=== PATIENT | female | born 1965 | race Caucasian/White ===

== ENCOUNTER 2017-12-26 17:59 | Emergency (ER) | payer OTHER ==
--- OUTSIDE RECORDS SUMMARY | 2017-12-26 18:28 | XMS REPORT ---
:1965 External Reference #:[id number] Author Organization [facility] Address [address] [place] [address] Phone [phone] Care Team Providers Name Role Phone Dean Moore M.D. Care Team Information Information Systems Manager Unavailable Dean Moore M.D. Primary Care Physician Unavailable Payers Type Date Identification Numbers Payment Provider Subscriber Commercial Policy Number: [id number] [employer] Dinorah Marcelino PayID: [id number] [place] [address] Health Maintenance Expires: Policy Number: [facility] Dinorah Marcelino [facility] [place] [place] 10/03/2016 [id number] PayID: [id number] [place] [address] Problems Description No Information Family History Date Family Member(s) Problem(s) Comments Father Diabetes Father Heart Disease Mother due to Cancer () Mother due to Heart Attack () Social History Type Date Description Comments Cigarette Use currently smokes 1/2 Pack Daily ETOH Use Rare Use Of Alcohol Recreational Drug Use Has Used In Past Allergies, Adverse Reactions, Alerts Date Description Reaction Status Severity Comments 11/01/2016 NKDA active Medications Medication Date Status Form Strength Qnty SIG Indications Ordering Provider Amoxicillin/Clavu /18/ Active Tablets 875-125mg 14tabs 1 by adriane Girard 2018 mouth Yehuda, twice a M.D. day for 7 days Dexamethasone 18/ Active Tablets 4mg 5tabs one tab Shaji, 2018 daily Yehuda, for 5 M.D. days Levo-T 00/ Active Tablets 88mcg Unknown 0000 Metformin HCL / Active Tablets 500mg 1 by Unknown 0000 mouth twice a day Calcium 600 / Active Tablets 600mg by mouth Unknown 0000 twice a day Aspirin Low Dose / Active Chewtabs 81mg 1 by Unknown 0000 mouth every day Ranitidine HCL / Active Capsules 150mg 1 by Unknown 0000 mouth twice a day Simvastatin / Active Tablets 20mg 1 by Unknown 0000 mouth every day Cilostazol / Active Tablets 50mg Unknown 0000 Cyclobenzaprine / Active Tablets 10mg 1 tab by Unknown HCL 0000 mouth three times a day as needed for muscle spasms Anoro Ellipta / Active Aerosol 62.5-25mcg take one Unknown 0000 /Inh puff once daily. Albuterol Sulfate / Active Nebulizer (2.5mg/3ML maximum Unknown 0000 ) 0.083% three times a day q8 as needed Ventolin HFA / Active Aerosol 108(90Base 2 puffs Unknown 0000 ) mcg/Act every 4 hours as needed Paxil / Active Tablets 40mg 1 by Unknown 0000 mouth every day Tramadol HCL / Active Tablets 50mg 1-2. tab Unknown 0000 q4h. for pain Vital Signs Date Vital Result Comment 12/19/2017 Weight 211.00 lb Height 65 inches 5'5" BMI (Body Mass Index) 35.1 kg/m2 BP Systolic 133 mmHg BP Diastolic 90 mmHg Heart Rate 100 /min O2 % BldC Oximetry 98 % Body Temperature 97.7 F Pain Level 0 11/28/2017 Weight 211.00 lb Height 65 inches 5'5" BMI (Body Mass Index) 35.1 kg/m2 BP Systolic 131 mmHg BP Diastolic 92 mmHg Heart Rate 106 /min O2 % BldC Oximetry 98 % Body Temperature 97.1 F Pain Level 0 09/19/2017 Weight 209.00 lb Height 65 inches 5'5" BMI (Body Mass Index) 34.8 kg/m2 BP Systolic 126 mmHg BP Diastolic 88 mmHg Heart Rate 80 /min O2 % BldC Oximetry 96 % Body Temperature 97.5 F Pain Level 0 01/10/2017 Weight 175.00 lb Height 65 inches 5'5" BMI (Body Mass Index) 29.1 kg/m2 Heart Rate 68 /min O2 % BldC Oximetry 97 % Body Temperature 98.2 F Pain Level 2 11/01/2016 Weight 175.00 lb Height 65 inches 5'5" BMI (Body Mass Index) 29.1 kg/m2 BP Systolic 116 mmHg BP Diastolic 74 mmHg Heart Rate 85 /min O2 % BldC Oximetry 99 % Body Temperature 97.6 F Results Description No Information Procedures Date CPT Code Description Status 11/28/2017 74525 Nasal Endoscopy, Diag. Completed 09/19/2017 35997 Nasal Endoscopy, Diag. Completed 01/02/2017 11830 Nasal/Sinus Endosc.W.Max.Antrost. Completed 01/02/2017 73618 Nasal/Sinus Endosc.Surg.W.Ethmoid Completed 01/02/2017 12955 Septoplasty Completed 01/02/2017 27251 Submucous Resect.Turb.Par Or Comp Completed 01/02/2017 72559 Anesthesia, Intraoral Surgery Not Otherwise Spec Completed 11/01/2016 70453 Nasal Endoscopy, Diag. Completed Encounters Type Date Location Provider CPT E/M Office Visit 11/28/2017 11:45a [facility] Yehuda Girard M.D. 74022 Office Visit 09/19/2017 1:00p [facility] Yehuda Girard M.D. 96824 Office Visit 11/01/2016 2:15p [facility] Yehuda Girard M.D. [id number]
--- OUTSIDE RECORDS SUMMARY | 2017-12-26 18:28 | XMS REPORT ---
:1965 External Reference #:[id number] Author Organization [facility] Address [address] [place] [address] Phone [phone] Care Team Providers Name Role Phone Dean Moore M.D. Care Team Information [place] Unavailable Dean Moore M.D. Primary Care Physician Unavailable Payers Type Date Identification Numbers Payment Provider Subscriber Commercial Policy Number: [id number] [employer] Dinorah Marcelino PayID: [id number] [place] [address] Health Maintenance Expires: Policy Number: [place] [facility] Dinorah Marcelino [facility] ([facility] [place] 10/03/2016 [id number] PayID: [id number] [place] [address] Problems Description No Information Family History Date [...] daily Yehuda, for 5 M.D. days Levo-T /00/ Active Tablets 88mcg Unknown 0000 Metformin HCL [...] pain Vital Signs Date Vital Result Comment 11/28/2017 Weight 211.00 lb Height 65 inches [...] Information Procedures Date CPT Code Description Status 09/19/2017 31600 Nasal Endoscopy, Diag. Completed 01/02/2017 79639 Nasal/Sinus Endosc.W.Max.Antrost. Completed 01/02/2017 97679 Nasal/Sinus Endosc.Surg.W.Ethmoid Completed 01/02/2017 02108 Septoplasty Completed 01/02/2017 90161 Submucous Resect.Turb.Par Or Comp Completed 01/02/2017 67024 Anesthesia, Intraoral Surgery Not Otherwise Spec Completed 11/01/2016 74209 Nasal Endoscopy, Diag. Completed Encounters Type Date Location Provider CPT E/M Dx Office Visit 09/19/2017 1:00p [facility] Yehuda Girard M.D. 48618 J01.90 H69.83 R42 Office Visit 11/01/2016 2:15p [facility] Yehuda Girard M.D. 39450 J34.2 J31.0 K21.9 J32.9 Plan of Care No Information Available
--- NOTE | 2017-12-26 18:58 | UC ---
Cardiac HPI - HPI Summary HPI Summary: 4 DAYS OF WORSENING SHARP MIDSTERNAL/RIGHT SIDED CHEST PAIN AND PALPITATIONS. FINGERTIPS FEEL TINGLY. HAS ASSOCIATED SOB, NAUSEA AND DIZZINESS. WORSE WHEN SHE STANDS UP. STATES HER BP TODAY DROPPED TO 73/55. NO FEVER. HAS H/O INTERMITTENT CP AND PALPITATIONS BUT THIS FEELS DIFFERENT. AT TIME OF EXAM PT STATES CP IS GONE BUT PALPITATIONS PERSIST. 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 Onset/Duration: Gradual Onset, Lasting Days, Still Present Timing: Constant Initial Severity: Moderate Current Severity: Moderate Pain Intensity: 0 Chest Pain Location: Mid Sternal, Right Anterior Character: Fluttering, Sharp/Stabbing Aggravating Factor(s): Position Alleviating Factor(s): Rest, Position Associated Signs & Symptoms: Positive: Chest Pain, Tingling, SOB, Nausea/ Vomiting, Palpitations - Allergy/Home Medications Allergies/Adverse Reactions: Allergies Allergy/AdvReac Type Severity Reaction Status Date / Time Sulfa (Sulfonamide Allergy Severe Difficulty Verified 12/26/17 18:20 Antibiotics) Breathing Home Medications: Home Medications Calcium Carbonate/Vitamin D3 [Calcium 600 + Vit D Tablet] 1 each PO DAILY [History Confirmed 12/26/17] Nystatin OINT* 1 applic TOPICAL BID 12/26/17 [History Confirmed 12/26/17] busPIRone TAB* [Buspar TAB *] 15 mg PO BID 12/26/17 [History Confirmed 12/26/17] traMADol TAB* [Ultram*] 50 mg PO Q12H PRN 12/26/17 [History Confirmed 12/26/17] PMH/Surg Hx/FS Hx/Imm Hx Endocrine History: Diabetes, Hypothyroidism Psychological History: Post Traumatic Stress Disorder - Surgical History Surgical History: Yes Surgery Procedure, Year, and Place: APPI, 2 C-SECT, NECK BIOPSY,TONSILS & ADENOIDS,tubal ligation,Angio Plasty 05/18, HEART CATH- HAD MRI 1.5T [facility], - Family History Known Family History: Positive: Hypertension - Social History Alcohol Use: Rare Substance Use Type: None Smoking Status (MU): Light Every Day Tobacco Smoker Type: Cigarettes Amount Used/How Often: 1/2 PPD Household Exposure Type: Cigarettes Review of Systems Constitutional: Negative Respiratory: Shortness Of Breath Cardiovascular: Palpitations, Chest Pain Gastrointestinal: Nausea All Other Systems Reviewed And Are Negative: Yes Physical Exam Triage Information Reviewed: Yes Appearance: Well-Appearing, No Pain Distress, Well-Nourished Vital Signs: Initial Vital Signs Temp 98.1 F 12/26/17 18:12 Pulse 83 12/26/17 18:12 Resp 16 12/26/17 18:12 BP 142/63 12/26/17 18:12 Pulse Ox 98 12/26/17 18:12 Vital Signs Reviewed: Yes Eyes: Positive: Conjunctiva Clear ENT: Positive: Hearing grossly normal Neck: Positive: Supple Respiratory Exam: Normal Cardiovascular Exam: Normal Abdomen Description: Positive: Nontender, Soft Musculoskeletal: Positive: No Edema Neurological: Positive: Alert Psychological: Positive: Normal Response To Family, Age Appropriate Behavior Skin: Negative: rashes Diagnostics - EKG Cardiac Rate: NL - 84BPM Cardiac Rhythm: Sinus: Normal Ectopy: None ST Segment: Normal - Assessment/Plan Course Of Treatment: TO [facility] BY AMBULANCE - Clinical Impression Provider Diagnoses: CHEST PAIN/PALPITATIONS - Physician Notifications Discussed Patient Care With: Emily Aceves - TO [facility] BY AMBULANCE Time Discussed With Above Provider: 18:50 Instructed by Provider To: MD Will See In ED Discharge - Sign-Out/Discharge Documenting (check all that apply): Patient Departure All imaging exams completed and their final reports reviewed: No Studies - Discharge Plan Condition: Stable Disposition: TRANS HIGHER LVL OF CARE FAC Referrals: Dean Moore MD [Primary Care Provider] - - Billing Disposition and Condition Condition: STABLE Disposition: Trans Higher Lvl of Care Fac
[2017-12-26 19:08] VITALS: BP 131/60
== END 2017-12-26 19:11 | disposition short-term general hospital (02) ==
LOC: UCEAST 17:59
DX: R07.9 Chest pain, unspecified (principal); R00.2 Palpitations; F17.200 Nicotine dependence, unspecified, uncomplicated; E11.9 Type 2 diabetes mellitus without complications; E03.9 Hypothyroidism, unspecified; F43.10 Post-traumatic stress disorder, unspecified
CPT/HCPCS: 93005; 99213; G0463

== ENCOUNTER 2017-12-26 19:27 | Emergency (ER) | payer OTHER ==
[2017-12-26 19:42] VITALS: BP 173/71
--- NOTE | 2017-12-26 20:02 | ED ---
Palpitations / Dysrhythmia - HPI Summary HPI Summary: 52 year old F BIB EMS from Urgent Care to [facility] complains of intermittent chest palpitations described as fluttering that began late this morning. Symptoms aggravated by nothing. Symptoms alleviated by nothing. The chest fluttering has progressively become more prolonged throughout the day, lasting 2-3 minutes, followed by right-sided sharp chest pain that radiates to her shoulders lasting 1-2 minutes. The patient rates the chest pain 3/10 in severity that has worsened to 7/10 in severity throughout the day. These episodes happen every 30- 60 minutes. She reports tingliness in her finger tips, headache, nausea, and decreased appetite. She states that when she stands up, she feels dizziness described as lightheadedness/fogginess/about to pass out. She has hx COPD. Patient additionally complains of shortness of breath that has worsened x4 days. Patient reports hx hypotension, she is concerned that her blood pressure is going up. Patient denies syncope, cough, fever, abdominal pain, and vomiting. - History of Current Complaint Chief Complaint: EDDysrhythmPalp Time Seen by Provider: 12/26/17 19:40 Hx Obtained From: Patient Onset/Duration: Sudden Onset, Lasting Hours - late this morning, Still Present Timing: Intermittent Episodes Lasting: - 2-3 minutes Severity Initially: Mild Severity Currently: Moderate Character: Fluttering Aggravating: Nothing Alleviating: Nothing - Allergy/Home Medications Allergies/Adverse Reactions: Allergies Allergy/AdvReac Type Severity Reaction Status Date / Time Sulfa (Sulfonamide Allergy Severe Difficulty Verified 12/26/17 19:39 Antibiotics) Breathing PMH/Surg Hx/FS Hx/Imm Hx Previously Healthy: No Endocrine/Hematology History: Reports: Hx Diabetes - TAKES METFORMIN, Hx Thyroid Disease - ASHLEE'S Denies: Hx Systemic Lupus Erythematosus Cardiovascular History: Reports: Hx Angina, Hx Hypercholesterolemia, Hx Hypotension, Hx Syncope Denies: Hx Hypertension, Hx Pacemaker/ICD Respiratory History: Reports: Hx Asthma, Hx Chronic Obstructive Pulmonary Disease (COPD) GI History: Reports: Other GI Disorders - reflux History: Denies: Hx Renal Disease Musculoskeletal History: Reports: Hx Osteoporosis Denies: Hx Rheumatoid Arthritis Sensory History: Denies: Hx Hearing Aid Neurological History: Reports: Other Neuro Impairments/Disorders - numbness in legs felt to be circulation Psychiatric History: Reports: Hx Panic Disorder - Cancer History Hx Chemotherapy: No Hx Radiation Therapy: No - Surgical History Surgery Procedure, Year, and Place: APPI, 2 C-SECT, NECK BIOPSY,TONSILS & ADENOIDS,tubal ligation,Angio Plasty 05/18, HEART CATH- HAD MRI 1.5T [facility], Infectious Disease History: No Infectious Disease History: Denies: History Other Infectious Disease, Traveled Outside the [place] in Last 30 Days - Family History Known Family History: Positive: Hypertension - Social History Alcohol Use: Rare Hx Substance Use: No Substance Use Type: Reports: None Hx Tobacco Use: Yes Smoking Status (MU): Light Every Day Tobacco Smoker Type: Cigarettes Amount Used/How Often: 1/2 PPD Review of Systems Positive: Other - blood pressure is going up. Negative: Fever Positive: Palpitations - intermittent, described as fluttering that began late this morning, lasting 2-3 minutes, Chest Pain - right-sided, sharp, radiates to her shoulders lasting 1-2 minutes, Other Positive: Shortness Of Breath. Negative: Cough Positive: Nausea, Other - decreased appetite. Negative: Abdominal Pain, Vomiting Neurological: Other - tingliness in her finger tips, dizziness described as lightheadedness/fogginess/about to pass out Positive: Headache. Negative: Syncope All Other Systems Reviewed And Are Negative: Yes Physical Exam - Summary Physical Exam Summary: Appearance: Well-appearing, Well-nourished, lying in bed comfortably Skin: Warm, dry, no obvious rash Eyes: sclera anicteric, no conjunctival pallor ENT: mucous membranes moist, pharynx appears normal Neck: Supple, nontender Respiratory: Clear to auscultation, no signs of respiratory distress Cardiovascular: Normal S1, S2. No murmurs. Normal distal pulses in tibial and radial bilaterally. Abdomen: Soft, nontender, normal active bowel sounds present Musculoskeletal: Normal, Strength/ROM Intact Neurological: A&Ox3, awake and alert, mentation is normal, speech is fluent and appropriate Psychiatric: affect is normal, does not appear anxious or depressed Triage Information Reviewed: Yes Vital Signs On Initial Exam: Initial Vitals Temp Pulse Resp BP Pulse Ox 98.4 F 87 20 173/71 99 12/26/17 19:39 12/26/17 19:39 12/26/17 19:39 12/26/17 19:39 12/26/17 19:39 Vital Signs Reviewed: Yes Diagnostics - Vital Signs Vital Signs Temp Pulse Resp BP Pulse Ox 12/26/17 19:39 98.4 F 87 20 173/71 99 - Laboratory Result Diagrams: 12/26/17 20:05 12/26/17 20:05 Lab Statement: Any lab studies that have been ordered have been reviewed, and results considered in the medical decision making process. 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 Scribe Documentation Reviewed: Yes Provider Attestation: The documentation as recorded by the [email or web address] chris accurately reflects the service I personally performed and the decisions made by me, Jonathan Restrepo MD
[2017-12-26 20:15] LABS: ABS Basophils 0.1 10^3/ul (0-0.2); ABS Eosinophils 0.1 10^3/ul (0-0.6); ABS Lymphocytes 2.3 10^3/ul (1.0-4.8); ABS Monocytes 0.6 10^3/ul (0-0.8); ABS Neutrophils 3.7 10^3/ul (1.5-7.7); ABS Nucleated RBC 0 10^3/ul; Eosinophil % 1.7 % (0-6); Hematocrit 34 % (35-47); Hemoglobin 11.5 g/dl (12.0-16.0); Lymphocyte % 34.1 % (25-47); Mean Corpuscular HGB Conc 34 g/dl (31-36); Mean Corpuscular Hemoglobin 30 pg (27-31); Mean Corpuscular Volume 88 fL (80-97); Mean Platelet Volume 7.2 um3 (7.4-10.4); Nucleated Red Blood Cells % 0; Platelet Count 313 10^3/ul (150-450); Red Blood Count 3.85 10^6/ul (4.00-5.40); Red Cell Distribution Width 15 % (10.5-15); White Blood Count 6.7 10^3/ul (3.5-10.8)
[2017-12-26 20:32] LABS: EGFR Non-African American 60.6 (>60)
--- NOTE | 2017-12-27 09:21 | RAD ---
INDICATION: RIGHT side chest pain and shortness of breath. Palpitations. COPD. History of tobacco use. COMPARISON: June 12, 2016 TECHNIQUE: Dual energy PA and routine lateral views of the chest were obtained. REPORT: Suboptimal inspiration for this patient compared with the prior exam demonstrating elevated lung volumes. Increased AP thoracic diameter. Mild prominence of interstitial markings and minimal bilateral subsegmental atelectasis. The lungs and pleural spaces are otherwise clear. Negative for pneumothorax. The heart, pulmonary vasculature, and mediastinal contours are unremarkable. Bone density appears decreased throughout. No fractures evident. IMPRESSION: #. Stigmata of obstructive lung disease. #. Mild subsegmental atelectasis.
== END 2017-12-26 21:06 | disposition home or self-care (01) ==
LOC: ED 19:27
DX: R00.2 Palpitations (principal); R06.02 Shortness of breath; R51 Headache; R11.0 Nausea
CPT/HCPCS: 36415; 71046; 80053; 84484; 85025; 85379; 93005; 99283

== ENCOUNTER 2018-03-05 06:56 | Day surgery (SDC) | payer OTHER ==
[~2018-03-05 06:56] MED LIST: Buffered Lidocaine 0.9% SYRIN* 5 ML/SYR SYRINGE INTRADERM ONE
[2018-03-05] MEDS ORDERED: DiMENhydriNATE IV* 50 MG/ML VIAL IV PUSH PRN (07:32)
[2018-03-05] MEDS ORDERED: Levalbuterol 0.63MG/3ML NEB* UNIT OF USE INH PRN (07:32)
[2018-03-05] MEDS ORDERED: PROCHLORPERAZINE INJ 5 MG/ML 2 ML VIAL IV PRN (07:32)
[2018-03-05] MEDS ORDERED: Naloxone* 0.4 MG/ML 1 ML VIAL IV PRN (07:32)
[2018-03-05] MEDS ORDERED: Ondansetron INJ* 2 MG/ML VIAL IV PRN (07:32)
[2018-03-05] MEDS ORDERED: Acetaminophen TAB* 325 MG PO PRN (07:32)
[2018-03-05] MEDS ORDERED: fentaNYL* 50 MCG/ML 2 ML VIAL (100 MCG VIAL) IV PRN (07:32)
[2018-03-05] MEDS ORDERED: diPHENhydraMINE IV* 50 MG/ML 1 ml VIAL (BENADRYL) IV PRN (07:32)
[2018-03-05] MEDS ORDERED: fentaNYL* 50 MCG/ML 2 ML VIAL (100 MCG VIAL) ONE ×2 (08:08→08:36)
[2018-03-05] MEDS ORDERED: Midazolam* 1 MG/ML 2 ML VIAL (2 MG) ONE (08:08)
[2018-03-05] MEDS ORDERED: KETAMINE HCL* 50 MG/ML 10 ML VIAL ONE (08:36)
[2018-03-05] MEDS ORDERED: Famotidine IV* 10 MG/ML 2 ML (20 mg) ONE (08:37)
[2018-03-05] MEDS ORDERED: Dexamethasone IV* 4 MG/ML 1 ML (4 MG) ONE (08:37)
[2018-03-05] MEDS ORDERED: Lidocaine 2% PF * 5 ML VIAL ONE (08:37)
[2018-03-05] MEDS ORDERED: Propofol* 10 MG/ML 20 ML BTL IV PUSH ONE (08:37)
[2018-03-05 10:01] VITALS: BP 133/93
--- NOTE | 2018-03-06 04:40 | PRO ---
CC: MARIA ELENA Arriaga; Dr. Moore * DATE OF SERVICE: 03/05/18 - [facility] PRIMARY CARE PHYSICIAN: Dr. Moore INDICATIONS FOR PROCEDURE: Epigastric pain and dysphagia. PROCEDURE PERFORMED: EGD with biopsy. MEDICATIONS GIVEN: Please see anesthesia report. DESCRIPTION OF PROCEDURE: After the EGD procedure including the risks, benefits , and alternatives with the risks not limited to perforation, surgery, missed lesions, and/or were explained to the patient, written consent was then obtained, IV medication was given, and a bite block was placed between the teeth. The IV medication was given by the anesthesia service. The adult Olympus gastroscope was passed through the patient's mouth into the upper esophageal sphincter, into the tubular esophagus. At the distal esophagus, the GE junction was intact. There was minimal irregularity this was biopsied. The scope was then advanced through the lower esophageal sphincter into the stomach. Retained gastric contents were evident, they obscured roughly 30 to 40 % of the body and cardia. I did suction up the fluid. I was able to get a little bit better views, but this did limit the views of the stomach. She did have patchy gastropathy most prevalent in the body, but also prevalent in the antrum. This was biopsied and then in addition, a CLOtest was done. Retroflexion showed retained contents, but no gross abnormalities. The scope was then advanced through the widely patent pylorus into the duodenal bulb, C- loop, and distal duodenum, and all these were normal in appearance. Biopsies were taken for celiac disease given her diarrhea. The scope was withdrawn from the patient. The GE junction was at 38. She tolerated the procedure well. She was returned to the recovery room in stable condition. IMPRESSION: 1. Complete esophagogastroduodenoscopy with biopsy. 2. Very mild irregularity of the GE junction, biopsied. 3. Retained food contents, suspect gastroparesis. 4. Gastropathy patchy, biopsied and CLOtest. 5. Normal-appearing duodenum, biopsied. RECOMMENDATIONS: No dilation could be done today, however, there was no focal stricture or narrowing, but no empiric dilation could be done secondary to the retained food contents. Her symptomatology is suspicious for some gastroparesis , would recommend a gastric emptying study be done. In addition, her dysphagia seems to be more oropharyngeal, would recommend a modified barium swallow with speech therapy. We will follow up on these biopsies and she can follow up with Netta Bonilla in our office in 4 to 6 weeks. [id number]/[facility] #: [id number] OBDULIA
== END 2018-03-05 10:02 | disposition home or self-care (01) ==
LOC: OR 06:56 → EDSTATUS 08:15 → OR 10:02
PROVIDERS: ATTEND Internal Medicine Gastroenterology
DX: K21.9 Gastro-esophageal reflux disease without esophagitis (principal); K29.50 Unspecified chronic gastritis without bleeding; R13.10 Dysphagia, unspecified; J43.9 Emphysema, unspecified
CPT/HCPCS: 87077; 88305; J1100; J2250; J2704; J3010

== ENCOUNTER 2018-03-11 11:44 | Emergency (ER) | payer OTHER ==
[2018-03-11] MEDS ORDERED: Ketorolac INJ* 30 MG/ML 1 ML VIAL IM ONE (14:47)
[2018-03-11 15:26] VITALS: BP 142/70
--- NOTE | 2018-03-11 18:01 | ED ---
Back Pain - HPI Summary HPI Summary: Patient is a 52-year-old female who presents emergency department for left- sided lower rib pain times several days. Patient states she had an apron on with a woody knife in her pocket when she pressed up against something and hand all into her left side of rib cage. Patient states she has had pain since and then she started with a cough yesterday. She denies fever, chills, shortness of breath. She is a daily smoker. She takes tramadol and meloxicam. Symptoms are mild in severity. Coughing and movement makes symptoms worse. Rest makes symptoms better. - History of Current Complaint Chief Complaint: EDBackInjuryPain Stated Complaint: BACK PAIN Time Seen by Provider: 03/11/18 14:06 Hx Obtained From: Patient Hx Last Menstrual Period: STONE PAVER Pain Intensity: 7 Pain Scale Used: 0-10 Numeric - Allergies/Home Medications Allergies/Adverse Reactions: Allergies Allergy/AdvReac Type Severity Reaction Status Date / Time Sulfa (Sulfonamide Allergy Severe Difficulty Verified 03/11/18 11:57 Antibiotics) Breathing PMH/Surg Hx/FS Hx/Imm Hx Previously Healthy: Yes Endocrine/Hematology History: Reports: Hx Diabetes - TYPE II- ON ORAL MEDICATION FOR, Hx Thyroid Disease - ASHLEE'S, Hx Anemia - REPORTS ON AND OFF -STATES LAST TIME CHECKED WAS ANEMIC Denies: Hx Systemic Lupus Erythematosus Cardiovascular History: Reports: Hx Angina, Hx Hypercholesterolemia, Hx Hypotension, Hx Peripheral Vascular Disease, Hx Syncope, Other Cardiovascular Problems/Disorders - FOLLOWED BY DR. ZUNIGA- LAST SEEN-01/2018 Denies: Hx Hypertension, Hx Pacemaker/ICD Respiratory History: Reports: Hx Asthma, Hx Chronic Obstructive Pulmonary Disease (COPD) GI History: Reports: Hx Gastroesophageal Reflux Disease - ON MEDICATION FOR, Hx Irritable Bowel, Other GI Disorders - reflux History: Denies: Hx Renal Disease Musculoskeletal History: Reports: Hx Arthritis - OSTEOARTHRITIS, Hx Osteoporosis , Other Musculoskeletal History - PATIENT IS UNSURE OF LOWER BACK DISC PROBLEM- BUT STATES HAS A PROBLEM Denies: Hx Rheumatoid Arthritis Sensory History: Reports: Hx Cataracts - BILATERAL, Hx Contacts or Glasses - READING GLASSES Denies: Hx Hearing Aid Opthamlomology History: Reports: Hx Cataracts - BILATERAL, Hx Contacts or Glasses - READING GLASSES Neurological History: Reports: Hx Headaches - DAILY-ONGOING, Hx Migraine - EVERY FEW MONTHS, Other Neuro Impairments/Disorders - PTSD// Psychiatric History: Reports: Hx Anxiety - ON MEDICATION FOR, Hx Depression - ON MEDICATION FOR, Hx Panic Disorder - Cancer History Hx Chemotherapy: No Hx Radiation Therapy: No - Surgical History Surgery Procedure, Year, and Place: APPI\Y, 2 C-SECT, NECK BIOPSY,TONSILS & ADENOIDS,tubal ligation,Angio Plasty 05/18, HEART CATH- HAD MRI 1.5T SINCE,NO STENTS,LEFT BREAST BIOPSY Hx Anesthesia Reactions: No Infectious Disease History: No Infectious Disease History: Denies: History Other Infectious Disease, Traveled Outside the [place] in Last 30 Days - Family History Known Family History: Positive: Hypertension - Social History Occupation: Unemployed Lives: With Family Alcohol Use: Rare Hx Substance Use: No Substance Use Type: Reports: None Hx Tobacco Use: Yes Smoking Status (MU): Current Every Day Smoker Type: Cigarettes Amount Used/How Often: 5-10 cigarettes/day X 47 YEARS Have You Smoked in the Last Year: Yes Review of Systems Constitutional: Negative Negative: Fever, Chills Eyes: Negative ENT: Negative Positive: Other - Left lower rib pain Negative: Shortness Of Breath, Cough Neurological: Negative All Other Systems Reviewed And Are Negative: Yes Physical Exam Triage Information Reviewed: Yes Vital Signs On Initial Exam: Initial Vitals Temp Pulse Resp BP Pulse Ox 97.2 F 87 14 149/73 98 03/11/18 11:54 03/11/18 11:54 03/11/18 11:54 03/11/18 11:54 03/11/18 11:54 Vital Signs Reviewed: Yes Appearance: Positive: Well-Appearing - Pt. sitting on bed leaning to her left side. Breathing easily on RA Skin: Positive: Warm, Dry Head/Face: Positive: Normal Head/Face Inspection Eyes: Positive: Normal, EOMI Neck: Positive: Supple Respiratory/Lung Sounds: Positive: Clear to Auscultation, Breath Sounds Present. Negative: Decreased Breath Sounds, Rales, Rhonchi, Stridor, Tracheal Deviation, Wheezes, Unable to speak in full sentences Cardiovascular: Positive: Normal, RRR Musculoskeletal: Positive: Other - Pain on palpation to the left low lateral rib cage Neurological: Positive: Normal, CN Intact II-III Psychiatric: Positive: Affect/Mood Appropriate Diagnostics - Vital Signs Vital Signs Temp Pulse Resp BP Pulse Ox 03/11/18 15:25 98 F 82 15 142/70 100 03/11/18 11:54 97.2 F 87 14 149/73 98 - Laboratory Lab Statement: Any lab studies that have been ordered have been reviewed, and results considered in the medical decision making process. Back Pain Course/Dx - Course Course Of Treatment: Patient presenting with left low sided rib pain after recent injury and cough. She is afebrile and well appearing. O2 saturation is 98 % on RA which is normal. Chest and rib x-ray negative for acute findings, reading per radiology. Results discussed. Patient was given a dose of Toradol for pain. Advised to continue home medications. Advised close follow-up with PCP for recheck and return to the ER for increased pain, shortness of breath, fever or if concerned. Patient understands and agrees with plan. - Diagnoses Differential Diagnosis/HQI/PQRI: Positive: Fracture, Strain, Sprain Provider Diagnoses: Cough, Rib contusion Discharge - Sign-Out/Discharge Documenting (check all that apply): Patient Departure - Discharge Plan Condition: Good Disposition: HOME Patient Education Materials: Rib Contusion (ED) Referrals: Dean Moore MD [Primary Care Provider] - Additional Instructions: Call your PCP today for a close follow up appointment Ice intermittently Continue home medications as directed Return to ER for increased pain, fever, difficulty breathing or if concerned - Billing Disposition and Condition Condition: GOOD Disposition: Home
== END 2018-03-11 15:25 | disposition home or self-care (01) ==
LOC: ED 11:44
DX: S20.212A Contusion of left front wall of thorax, initial encounter (principal); X58.XXXA Exposure to other specified factors, initial encounter; Y92.9 Unspecified place or not applicable; R05 Cough; E11.9 Type 2 diabetes mellitus without complications; Z79.84 Long term (current) use of oral hypoglycemic drugs; K21.9 Gastro-esophageal reflux disease without esophagitis; F41.9 Anxiety disorder, unspecified; F32.9 Major depressive disorder, single episode, unspecified; Z88.2 Allergy status to sulfonamides; F17.210 Nicotine dependence, cigarettes, uncomplicated
CPT/HCPCS: 96372; 99281; J1885

== ENCOUNTER 2019-02-28 10:17 | Emergency (ER) | payer OTHER ==
[2019-02-28 11:01] LABS: Hematocrit 38 % (35-47); Hemoglobin 13.2 g/dL (12.0-16.0); Mean Corpuscular HGB Conc 35 g/dL (31-36); Mean Corpuscular Hemoglobin 30 pg (27-31); Mean Corpuscular Volume 86 fL (80-97); Mean Platelet Volume 6.8 fL (7.4-10.4); Platelet Count 526 10^3/uL (150-450); Red Blood Count 4.43 10^6 /uL (3.70-4.87); Red Cell Distribution Width 17 % (10-15); White Blood Count 12.1 10^3/uL (3.5-10.8)
[2019-02-28 11:16] LABS: Albumin 4.3 g/dL (3.2-5.2); Albumin/Globulin Ratio 1.4 (1-3); BUN/Creatinine Ratio 16.7 (8-20); Calcium 9.6 mg/dL (8.6-10.3); EGFR African American 92.8 (>60); EGFR Non-African American 76.7 (>60); Globulin 3.1 g/dL (2-4); Total Bilirubin 0.3 mg/dL (0.2-1.0); Total Protein 7.4 g/dL (6.4-8.9)
[2019-02-28] MEDS ORDERED: Albuterol/Ipratropium NEB.SOL* Albuterol 2.5 MG/Ipratropium 0.5 MG 3 ML INH ONE ×2 (11:17→12:23)
[2019-02-28 11:34] LABS: ABS Basophils 0.1 10^3/ul (0-0.2); ABS Monocytes 0.7 10^3/ul (0-0.8); ABS Neutrophils 8.3 10^3/ul (1.5-7.7); Eosinophil % 0.1 %
--- NOTE | 2019-02-28 11:59 | ED ---
Respiratory - HPI Summary HPI Summary: This patient is a 53 year old F with a history of COPD, recent pneumonia, heavy tobacco use, presenting to [facility] [place] accompanied by male friend with a chief complaint of PNA since 02/04/19, per triage. Patient reports she was diagnosed with bronchitis on 02/04/19 and PNA and sinus infection on 02/24/19 for which she was on abx for but is now off of. She is also given a steroid and inhaler. Pt reports that symptoms are not improving. Pt reports cough, SOB, dizziness, fatigue, intermittent fevers (last fever was 2 days ago). Denies chest pain. Pt also reports the rare productive cough yellow in color. Hx COPD, diabetes, thyroid. Currently smoking a pack/day started when 5. FMhx diabetes. - History of Current Complaint Chief Complaint: EDUpperRespComplaint Stated Complaint: POSS PNUEMONIA PER PT Time Seen by Provider: 02/28/19 10:33 Hx Obtained From: Patient Onset/Duration: Lasting Weeks, Still Present Timing: Constant Pain Intensity: 4 Character: Wheezing, Cough (Productive) Sputum Color: Yellow Aggravating Factor(s): Nothing Alleviating Factor(s): Nothing Associated Signs and Symptoms: Fever, SOB, Dizziness - Allergy/Home Medications Allergies/Adverse Reactions: Allergies Allergy/AdvReac Type Severity Reaction Status Date / Time Sulfa (Sulfonamide Allergy Severe Difficulty Verified 02/28/19 10:24 Antibiotics) Breathing PMH/Surg Hx/FS Hx/Imm Hx Endocrine/Hematology History: Reports: Hx Diabetes - TYPE II- ON ORAL MEDICATION FOR, Hx Thyroid Disease - ASHLEE'S, Hx Anemia - REPORTS ON AND OFF -STATES LAST TIME CHECKED WAS ANEMIC Denies: Hx Systemic Lupus Erythematosus Cardiovascular History: Reports: Hx Angina, Hx Hypercholesterolemia, Hx Hypotension, Hx Peripheral Vascular Disease, Hx Syncope, Other Cardiovascular Problems/Disorders - FOLLOWED BY DR. ZUNIGA- LAST SEEN-01/2018 Denies: Hx Hypertension, Hx Pacemaker/ICD Respiratory History: Reports: Hx Asthma, Hx Chronic Obstructive Pulmonary Disease (COPD) GI History: Reports: Hx Gastroesophageal Reflux Disease - ON MEDICATION FOR, Hx Irritable Bowel, Other GI Disorders - reflux History: Denies: Hx Renal Disease Musculoskeletal History: Reports: Hx Arthritis - OSTEOARTHRITIS, Hx Osteoporosis , Other Musculoskeletal History - PATIENT IS UNSURE OF LOWER BACK DISC PROBLEM- BUT STATES HAS A PROBLEM Denies: Hx Rheumatoid Arthritis Sensory History: Reports: Hx Cataracts - BILATERAL, Hx Contacts or Glasses - READING GLASSES Denies: Hx Hearing Aid Opthamlomology History: Reports: Hx Cataracts - BILATERAL, Hx Contacts or Glasses - READING GLASSES Neurological History: Reports: Hx Headaches - DAILY-ONGOING, Hx Migraine - EVERY FEW MONTHS, Other Neuro Impairments/Disorders - PTSD// Psychiatric History: Reports: Hx Anxiety - ON MEDICATION FOR, Hx Depression - ON MEDICATION FOR, Hx Panic Disorder - PANIC ATTAKCS OK FOR MRI - Cancer History Hx Chemotherapy: No Hx Radiation Therapy: No - Surgical History Surgery Procedure, Year, and Place: APPI\Y, 2 C-SECT, NECK BIOPSY,TONSILS & ADENOIDS,tubal ligation,Angio Plasty 05/18, HEART CATH- HAD MRI 1.5T SINCE,NO STENTS,LEFT BREAST BIOPSY Hx Anesthesia Reactions: No Infectious Disease History: No Infectious Disease History: Denies: History Other Infectious Disease, Traveled Outside the [place] in Last 30 Days - Family History Known Family History: Positive: Hypertension - Social History Alcohol Use: Rare Hx Substance Use: No Substance Use Type: Reports: None Hx Tobacco Use: Yes Smoking Status (MU): Current Every Day Smoker Type: Cigarettes Amount Used/How Often: 1/2 PPD Have You Smoked in the Last Year: Yes Review of Systems Positive: Fever, Fatigue Positive: Shortness Of Breath, Cough Neurological: Other - dizziness All Other Systems Reviewed And Are Negative: Yes Physical Exam - Summary Physical Exam Summary: Constitutional: Well-developed, Well-nourished, Alert. (-) Distressed Skin: Warm, Dry HENT: Normocephalic; Atraumatic Eyes: Conjunctiva normal Neck: Musculoskeletal ROM normal neck. (-) JVD, (-) Stridor, (-) Nuchal rigidity Cardio: Rhythm regular, rate normal, Heart sounds normal; Intact distal pulses; Radial pulses are 2+ and symmetric. (-) Murmur Pulmonary/Chest wall: bilateral expiratory wheezing, (-) Rales Abd: Soft, (-) tenderness, (-) Distension, (-) Guarding, (-) Rebound Musculoskeletal: (-) Edema Lymph: (-) Cervical adenopathy Neuro: Alert, Oriented x3 Psych: Mood and affect Normal Triage Information Reviewed: Yes Vital Signs On Initial Exam: Initial Vitals Temp Pulse Resp BP Pulse Ox 98.0 F 85 18 194/85 99 02/28/19 10:18 02/28/19 10:18 02/28/19 10:18 02/28/19 10:18 02/28/19 10:18 Vital Signs Reviewed: Yes Procedures - Sedation Patient Received Moderate/Deep Sedation with Procedure: No Diagnostics - Vital Signs Vital Signs Temp Pulse Resp BP Pulse Ox 02/28/19 11:00 86 23 94 02/28/19 10:52 82 18 173/87 93 02/28/19 10:50 84 95 02/28/19 10:18 98.0 F 85 18 194 99 - Laboratory Lab Results: Lab Results 02/28/19 02/28/19 02/28/19 Range/Units 10:42 10:42 10:42 WBC 12.1 H (3.5-10.8) 10^3/uL RBC 4.43 (3.70-4.87) 10^6 /uL Hgb 13.2 (12.0-16.0) g/dL Hct 38 (35-47) % MCV 86 (80-97) fL MCH 30 (27-31) pg MCHC 35 (31-36) g/dL RDW 17 H (10-15) % Plt Count 526 H (150-450) 10^3/uL MPV 6.8 L (7.4-10.4) fL Neut % (Auto) 68.5 % Lymph % (Auto) 25.0 % Tift % (Auto) 5.8 % Eos % (Auto) 0.1 % Baso % (Auto) 0.6 % Absolute Neuts (auto) 8.3 H (1.5-7.7) 10^3/ul Absolute Lymphs (auto) 3.0 (1.0-4.8) 10^3/ul Absolute Monos (auto) 0.7 (0-0.8) 10^3/ul Absolute Eos (auto) 0.0 (0-0.6) 10^3/ul Absolute Basos (auto) 0.1 (0-0.2) 10^3/ul Absolute Nucleated RBC 0.0 10^3/ul Nucleated RBC % 0.0 Sodium 132 L (135-145) mmol/L Potassium 4.0 (3.5-5.0) mmol/L Chloride 98 L (101-111) mmol/L Carbon Dioxide 26 (22-32) mmol/L Anion Gap 8 (2-11) mmol/L BUN 13 (6-24) mg/dL Creatinine 0.78 (0.51-0.95) mg/dL Est GFR ( Amer) 92.8 (>60) Est GFR (Non-Af Amer) 76.7 (>60) BUN/Creatinine Ratio 16.7 (8-20) Glucose 157 H (70-100) mg/dL Calcium 9.6 (8.6-10.3) mg/dL Total Bilirubin 0.30 (0.2-1.0) mg/dL AST 9 L (13-39) U/L ALT 13 (7-52) U/L Alkaline Phosphatase 92 (34-104) U/L Troponin I 0.00 (<0.04) ng/mL B-Natriuretic Peptide 67 (<=100) pg/mL Total Protein 7.4 (6.4-8.9) g/dL Albumin 4.3 (3.2-5.2) g/dL Globulin 3.1 (2-4) g/dL Albumin/Globulin Ratio 1.4 (1-3) Result Diagrams: 02/28/19 10:42 02/28/19 10:42 Lab Statement: Any lab studies that have been ordered have been reviewed, and results considered in the medical decision making process. - Radiology Chest X-Ray Radiology Interpretation Completed By: Radiologist Summary of Radiographic Findings: Per radiologist,. HYPERINFLATION, CONSISTENT WITH COPD. NO ACTIVE CARDIOPULMONARY DISEASE. ED physician has reviewed this imaging report. - EKG 1043 Cardiac Rate: NL - 81 BPM EKG Rhythm: Sinus Rhythm Summary of EKG Findings: At 1043, sinus at 81 BPM, t-wave inversions at AVL otherwise no ischemic changes. Re-Evaluation - Re-Evaluation First Eval Re-Evaluation Time: 12:13 Comment: Pt is feeling better after her nebulizer. Second Eval Re-Evaluation Time: 12:36 Comment: O2 sat is 95% on RA. Disposition - Course Course Of Treatment: 53 y/o F w hx COPD and heavy tobacco use p/w cough, fatigue and worsening MARCOS. Shortness of breath ddx: Most likely secondary to chronic underlying lung disease, and combination of smoking and recent pneumonia. Given 1 DuoNeb. After DuoNeb O2 sat in the low 90s suspect secondary to V/Q mismatch after albuterol. About 20 minutes after neb, O2 sat in the high 90s. No difficulty in breathing. Also consider: PNA - no new sputum production, no fevers or chills. mild leukocytosis but recently completed steroids. CXR w/o infiltrate. Low suspicion. PTX - breath sounds equal, no risk factors for PTX, CXR w/o e/o PTX. ACS - no CP, no EKG changes, initial trop not elevated. Low suspicion. CHF - no h/o CHF, no MARCOS or orthopnea , no BLE edema, CXR w/o pulmonary edema. PE - no risk factors for PE, no unilateral leg swelling - Diagnoses Provider Diagnoses: COPD (chronic obstructive pulmonary disease) Discharge ED - Sign-Out/Discharge Documenting (check all that apply): Patient Departure - discharge - Discharge Plan Condition: Stable Disposition: HOME Patient Education Materials: COPD (Chronic Obstructive Pulmonary Disease) (ED) Referrals: Dean Moore MD [Primary Care Provider] - 3 Days Additional Instructions: You were seen in the emergency department for cough. Your chest x-ray did not show any pneumonia. If any studies were not completed at the time of discharge you will be called with the relevant results. Please follow up with your primary care doctor in next 2-3 days and return to emergency department for worsening or concerning symptoms. It was a pleasure taking care of you today. - Billing Disposition and Condition Condition: STABLE Disposition: Home - Attestation Statements Document Initiated by Breann: Yes Documenting Scribe: Meggan Torres Provider For Whom Breann is Documenting (Include Credential): Dr. Gatito Juarez MD Scribe Attestation: I, Meggan Torres, scribed for Dr. Gatito Juarez MD on 02/28/19 at 1241. Scribe Documentation Reviewed: Yes Provider Attestation: The documentation as recorded by the Meggan palm accurately reflects the service I personally performed and the decisions made by me, Dr. Gatito Juarez MD Status of Scribe Document: Viewed
[2019-02-28 13:07] VITALS: BP 116/47
== END 2019-02-28 13:06 | disposition home or self-care (01) ==
LOC: ED 10:17
DX: J44.9 Chronic obstructive pulmonary disease, unspecified (principal); E11.9 Type 2 diabetes mellitus without complications; E03.9 Hypothyroidism, unspecified; E78.00 Pure hypercholesterolemia, unspecified; K21.9 Gastro-esophageal reflux disease without esophagitis; F41.9 Anxiety disorder, unspecified; F17.200 Nicotine dependence, unspecified, uncomplicated; Z88.2 Allergy status to sulfonamides; Z79.84 Long term (current) use of oral hypoglycemic drugs; Z79.899 Other long term (current) drug therapy; Z79.82 Long term (current) use of aspirin; Z79.890 Hormone replacement therapy
CPT/HCPCS: 36415; 71046; 80053; 83880; 84484; 85025; 93005; 99283; A9270-GY

== ENCOUNTER 2020-02-01 19:15 | Observation (INO) ==
[2020-02-01 20:00] LABS: ABS Basophils 0.1 10^3/ul (0-0.2); ABS Eosinophils 0.1 10^3/ul (0-0.6); ABS Lymphocytes 2.3 10^3/ul (1.0-4.8); ABS Monocytes 0.9 10^3/ul (0-0.8); ABS Neutrophils 6.9 10^3/ul (1.5-7.7); Eosinophil % 0.5 %; Hematocrit 32 % (35-47); Hemoglobin 10.7 g/dL (12.0-16.0); Lymphocyte % 22.8 %; Mean Corpuscular HGB Conc 34 g/dL (31-36); Mean Corpuscular Hemoglobin 31 pg (27-31); Mean Corpuscular Volume 92 fL (80-97); Mean Platelet Volume 7.4 fL (7.4-10.4); Platelet Count 279 10^3/uL (150-450); Red Blood Count 3.43 10^6 /uL (3.70-4.87); Red Cell Distribution Width 15 % (10-15); White Blood Count 10.2 10^3/uL (3.5-10.8)
[2020-02-01 20:17] LABS: Albumin 3.6 g/dL (3.2-5.2); Calcium 8.4 mg/dL (8.6-10.3); Potassium 3.5 mmol/L (3.5-5.0); Total Bilirubin 0.3 mg/dL (0.2-1.0)
[2020-02-01 20:18] LABS: Troponin I 0.01 ng/mL (<0.03)
[2020-02-01 20:23] LABS: Albumin/Globulin Ratio 1.4 (1-3); BUN/Creatinine Ratio 10.7 (8-20); EGFR African American 67.1 (>60); EGFR Non-African American 55.4 (>60); Globulin 2.6 g/dL (2-4); Total Protein 6.2 g/dL (6.4-8.9)
[2020-02-01] MEDS ORDERED: Ondansetron 4 mg VIAL 2 MG/ML 2 ml VIAL IV PRN (23:46)
[2020-02-01] MEDS ORDERED: Albuterol 2.5mg/3 ml (0.083%) NEB.SOLN INH PRN (23:50)
[2020-02-01] MEDS ORDERED: Aspirin EC 325 mg TAB.EC PO PRN (23:52)
[2020-02-02] MEDS ORDERED: Enoxaparin 40 MG/0.4 ML SYR SUBCUT SCH (06:00)
[2020-02-02 07:24] LABS: Cholesterol 151 mg/dL; HDL Cholesterol 42.4 mg/dL; LDL Cholesterol 87 mg/dL; Triglycerides 106 mg/dL
[2020-02-02] MEDS ORDERED: Regadenoson 0.4 MG/5 ML SYRINGE ONE (08:42)
[2020-02-02] MEDS ORDERED: Aminophylline 25 MG/ML VIAL ONE (08:42)
[2020-02-02] MEDS ORDERED: Calcium/Vitamin D TAB 250/125 TAB PO SCH (09:00)
[2020-02-02] MEDS ORDERED: Aspirin EC 81 mg TAB.EC (enteric coated) PO SCH (09:00)
[2020-02-02 10:47] LABS: Total Iron Binding Capacity 311 mcg/dL (250-450); Transferrin 222 mg/dL (203-362)
[2020-02-02 10:49] LABS: % Iron Saturation 6 % (15-55); Iron < 20 ug/dL (50-212); Unsaturated Iron Binding < 296 ug/dL
[2020-02-02 11:07] LABS: Ferritin 68.7 ng/mL (11-307)
[2020-02-02] MEDS ORDERED: Iodixanol (CONTRAST) 320 MG/ML 100 ML SDV IV ONE (11:28)
[2020-02-02 15:42] VITALS: BP 113/62
== END 2020-02-02 18:30 | disposition home or self-care (01) ==
LOC: MEDTELE 19:15 → ED 19:15 → MEDTELE 02-02 01:33
PROVIDERS: ADMIT Student in an Organized Health Care Education/Training Program; ATTEND Internal Medicine